=== PATIENT | male | born 1940 | race Caucasian/White ===

== ENCOUNTER 2017-01-18 15:27 | Inpatient (IN) | payer OTHER ==
[~2017-01-18] VITALS: Ht 182.9 cm; Wt 94.3 kg
--- NOTE | ~2017-01-18 | HC ---
[facility] [place] [address] CONSULTATION Name: RHONA WAN Room #: 459-P [facility] IN M.R.#: [id number] Admission: 01/18/17 Attend Phys: Willie Dangelo DO Discharge: 01/19/17 Date of : 44 Report #: [id number] THIS REPORT FOR: //name// CC: Willie Medeirosfer Venessa DATE OF SERVICE: 01/19/2017 REASON FOR CONSULTATION: Acute kidney injury. HISTORY OF PRESENT ILLNESS: This 76-year-old male has a significant history of hypertension. He has had several recent episodes of lightheadedness and dizziness. He apparently completed his lunch yesterday and was returning to work when he experienced an episode of loss of consciousness while getting into his car. He was brought to the emergency room and then subsequently admitted for further evaluation and treatment. Of note is that the patient does consume alcohol on a fairly regular basis. His alcohol level on arrival in the emergency room yesterday was 120. PAST MEDICAL HISTORY: Otherwise remarkable for hypertension, dyslipidemia, suspected sleep apnea, unable to perform sleep study; previous right shoulder rotator cuff repair, removal of basal cell carcinoma from the nose and a carotid endarterectomy in October 2016. MEDICATIONS: On admission include Benicar 40 mg daily, oxycodone 10/325 q.3-4 hours p.r.n., Xarelto 10 mg daily, Tylenol p.r.n., Dulcolax p.r.n., Benadryl p.r.n., Colace p.r.n., and simvastatin 20 mg at bedtime. PERSONAL AND SOCIAL HISTORY: The patient is . He is a reformed smoker having quit greater than 1 year ago. He consumes what is quantified as 3-4 beers on a regular daily basis. FAMILY HISTORY: Negative for renal disease. REVIEW OF SYSTEMS: Remarkable as described in the history of present illness. He denies recent fevers, chills, sweats or other constitutional complaints. He denies shortness of breath, productive cough, hemoptysis, chest pain, palpitations, nausea, vomiting, diarrhea or constipation. PHYSICAL EXAMINATION: GENERAL: Reveals a well-developed, well-nourished male, appearing his stated age, in no acute distress. VITAL SIGNS: Blood pressure 166/58, temperature 98.3, pulse 68 and respirations 20. SKIN: Warm and dry. EXTREMITIES: There is no clubbing, cyanosis, edema, or adenopathy. [address] [address] CONSULTATION Name: RHONA WAN Room #: 459-[facility] IN [facility].#: [id number] Admission: 01/18/17 Attend Phys: Willie Dangelo DO Discharge: 01/19/17 Date of : 42 Report #: [id number] HEENT: The head is normocephalic and atraumatic. The sclerae are white. The pharynx is benign. NECK: Supple. LUNGS: [place] reveal scattered rhonchi without evidence of consolidation. There is good inspiratory effort. CARDIOVASCULAR: Reveals a regular rate and rhythm without rub. ABDOMEN: Soft and nontender without palpable mass or organomegaly. NEUROLOGIC: Reveals the patient to be alert and cooperative. He provides medical history, however, his frequent corrects him, which he readily acknowledges. LABORATORY STUDIES: Available at the time of consultation include sodium 130, potassium 4.1, chloride 97, CO2 of 22, BUN 23, creatinine 1.8, glucose 97. Troponin less than 0.04. White blood cell count 7800, hemoglobin 13.0, hematocrit 37.4, and platelet count 211,000. ASSESSMENT: 1. Apparent loss of consciousness with an elevated alcohol level. It is unclear whether the patient had a significant neurologic event, hypotensive episode or was under the influence of alcohol at the time of his episode. He is undergoing further neurologic evaluation with CT and MRI as well as EEG. At this time, I would advise moderate isotonic hydration with a check of the patient's for electrolyte/chemical profile including phosphorus, magnesium and liver function test in view of his apparent significant alcohol ingestion on a chronic basis. His creatinine has improved modestly already and I would expect further improvement based upon the current bland urinalysis any active primary renal process. There is no evidence of hepatorenal syndrome or other more significant renal issue at this time. 2. Hypertension. 3. Hyponatremia. 4. Chronic alcohol abuse. PLAN: As outlined above. I have discussed these feelings and recommendation with Dr. Travis Wells, his primary physician/hospitalist. Please see orders. <ELECTRONICALLY SIGNED> By: Oscar Gutiérrez MD 01/20/17 0957 1344 1633 Oscar Gutiérrez MD /nt
--- NOTE | ~2017-01-18 | EKG ---
[address] [place] [address] ELECTROCARDIOGRAM REPORT Name: RHONA WAN Room #: 459-P ADM IN M.R.#: [id number] Admission: 01/18/17 Attend Phys: Willie Dangelo DO Discharge: Date of : 44 Report #: [id number] THIS REPORT FOR: //name// [facility] ED Test Date: 2017-01-18 Test Time: 15:48:41 Pat Name: RHONA WAN Department: Room: [facility] Gender: M Warehouse Supervisor [address] Shift: Harjinder LANTIGUA : 1940 Requested By: Sachi Moscoso Order Number: [id number] MD: Roberto Jackson Measurements Intervals [place] Rate: 54 P: 32 [place]: 317 QRS: 34 QRSD: 91 T: 50 QT: 468 QTc: 444 Interpretive Statements Sinus rhythm Prolonged [place] interval No previous ECG available for comparison Electronically Signed On 01-19-2017 8:28:15 CDT by Roberto Jackson [email or web address] <ELECTRONICALLY SIGNED> By: Roberto Jackson MD, [facility] 01/19/17 0828 1548 1548 Roberto Jackson MD, FACC /EPI
--- NOTE | ~2017-01-18 | HC ---
[facility] [place] [address] CONSULTATION Name: SAVAGERHONA Room #: 459-P [facility] IN M.R.#: [id number] Admission: 01/18/17 Attend Phys: Willie Dangelo DO Discharge: 01/19/17 Date of : 42 Report #: [id number] THIS REPORT FOR: //name// CC: Willie Medeirosfer Venessa DATE OF SERVICE: 01/19/2017 REASON FOR CONSULTATION: Syncope. HISTORY OF PRESENT ILLNESS: This is a very pleasant gentleman who had an episode of syncope. He states that he was getting out of his car getting ready to go to work, but he just felt dizzy and instantly passed out. He denied any chest pain, pressure, tightness, heaviness or irregular heartbeat or palpitations at that time. He has had a prior CVA in October of last year. He underwent left carotid endarterectomy at that time for a high-grade carotid lesion. Since that time, he has not had any recurrent symptomatology until this episode. He states he had been into casino playing poker and had "drank few beers" earlier in the day, but was driving to work. He did not have any significant orthopnea, PND, syncope, near syncope, had no recurrent symptomatology prior to the onset of this syncopal episode. He has not had any prior diagnosis of atrial arrhythmias at all. No dependent or nondependent edema is noted. No fever, chills or night sweats. PAST MEDICAL HISTORY: Significant for, 1. Hypertension. 2. CVA as stated above. 3. Dyslipidemia. 4. Basal cell skin cancers. 5. Suspicion of sleep apnea, but was unable to complete the studies. ALLERGIES: No known drug allergies. PAST SURGICAL HISTORY: 1. Carotid endarterectomy. 2. Basal cell tumors from the nose removed. 3. Appendectomy. 4. . MEDICATIONS: At home were Aldactone, Lexapro, amlodipine, Lipitor, Diovan, Lopressor, trazodone. He had been on omeprazole, oxycodone, Xarelto, acetaminophen, Dulcolax and Benadryl. SOCIAL HISTORY: The patient is a previous smoker, does consume alcohol 2-3 cans of beer a day. Does not follow up with exercise regimen or dietary restriction. [address] [address] CONSULTATION Name: RHONA WAN Room #: 459-P [facility] IN M.R.#: [id number] Admission: 01/18/17 Attend Phys: Willie Dangelo DO Discharge: 01/19/17 Date of : 44 Report #: [id number] ELECTROCARDIOGRAM: Demonstrates sinus bradycardia, first degree AV block, nonspecific ST-T wave changes. LABORATORY DATA: Demonstrates a BUN and creatinine of 32 and 1.8. Troponin is less than 0.04. H and H are 13.6 and 39.7. RADIOLOGIC: CAT scan demonstrates mild atrophy with mild vascular changes, but no evidence of mass, bleed, etc. REVIEW OF SYSTEMS: Except for symptoms previously mentioned and those commensurate with comorbid state, the 10-point review of systems is negative. PHYSICAL EXAMINATION: GENERAL: A well-developed white male, resting comfortably in no acute distress. VITAL SIGNS: Noted and reviewed in the chart. HEENT: Normocephalic, atraumatic. Pupils are equal, round, reactive to light and accommodation. Extraocular muscles are intact. Sclerae and conjunctivae are anicteric. NECK: JVD is normal. Carotid upstrokes are bilaterally symmetrical. No bruits are heard. No thyromegaly. No lymphadenopathy. LUNGS: Clear to auscultation. No wheezes, rhonchi or crackles. No CVA tenderness. CARDIAC: Demonstrates a regular rhythm. Normal first and second heart sounds. No ventricular or atrial gallops, no rubs noted. No murmurs. No lifts or heaves, PMI normal. ABDOMEN: Soft, nontender, nondistended. Normal bowel sounds. EXTREMITIES: Without cyanosis, clubbing or edema. Distal pulses are intact. DTR symmetrical. NEUROLOGIC: Cranial nerves 2-12 are grossly normal and symmetrical. PSYCHIATRIC: Alert, oriented with normal affect. SKIN: Warm and dry. IMPRESSION: 1. Syncope, etiology of which is uncertain. I doubt that few beers that he had prior to a syncopal episode were the cause at least I hope so since he was driving during this time. His alcohol level was elevated, but this may be baseline evidence of significant tolerance. I will defer that to primary care. We will get at discharge to try and capture any type of atrial arrhythmia that may be the most likely etiology in an individual at his age with negative carotids. I doubt an echocardiogram will be beneficial in the sense that if it is negative, it does not exclude small clots that are less than 5 mm in diameter. 2. Alcohol intoxification as per primary care. 3. Dyslipidemia. We discussed [place] [employer] step 1 diet and he does voice understanding. Unfortunately, I suspect that he will follow the indications. [facility] [email or web address] [address] CONSULTATION Name: RHONA WAN Room #: 459-P [facility] IN .[place].#: [id number] Admission: 01/18/17 Attend Phys: Willie Dangelo DO Discharge: 01/19/17 Date of : 44 Report #: [id number] 4. Hypertension. We will need to see his blood pressure. He is on a significant amount of medications, but if blood pressure is still in the low teens systolic, which may suggest the fact that all the medicines that he is on is necessary for his blood pressure control. <ELECTRONICALLY SIGNED> By: Olivier Marshall MD 01/22/17 1721 0651 0813 Olivier Marshall MD /nt
--- NOTE | ~2017-01-18 | EEG ---
[facility] [place] [address] ELECTROENCEPHALOGRAM Name: RHONA WAN Room #: 459-P [facility] IN M.R.#: [id number] Admission: 01/18/17 Attend Phys: Willie Dangelo DO Discharge: 01/19/17 Date of : 42 Report #: [id number] THIS REPORT FOR: //name// CC: Willie Clifford DATE OF SERVICE: 01/19/2017 This patient is being evaluated for an episode of syncope. EEG was done by placing the electrodes by standard 10-20 system of electrode placement. Both referential and sequential montages were used for recording. Background activity in this patient's EEG is about 11 Hz and 30-40 microvolts. It is a symmetrical activity. The patient went to sleep that is associated with bilaterally symmetrical sleep spindle and vertex sharp waves. Photic stimulation was unremarkable. Throughout the record, no active epileptiform activity was noticed. IMPRESSION: This patient's EEG is within normal limits. Thank you very much for this referral. By: [id number] Sabino Simpson MD /nt
[~2017-01-18 15:27] MED LIST: AMBIEN CR 6.26.25 MG PO; AMLODIPINE BESYL5 MG PO; APAP650 PO; ASPIRIN EC81 M1 PO; BENADRYL25 MG PO; BENICAR40 MG PO; BISACODYL SUPP10 MG RECTAL; COLACE100 MG PO; HYDROCODON-ACE1 EA11 PO; LEXAPRO20 MG PO; PERCOCET 10-321 EACH PO; SIMVASTATIN20 MG PO; XARELTO10 MG PO
[2017-01-18 15:49] LABS: ABSOLUTE NEUTROPHILS 5.6 thou/uL (1.4-8.2); BASOPHILS 0.7 % (0.0-2.0); EOSINOPHILS 2.8 % (0.0-3.0); HEMATOCRIT 39.7 % (42.0-52.0); HEMOGLOBIN 13.6 gm/dL (14.0-18.0); LYMPHOCYTES 21.7 % (24.0-44.0); MCH 33.5 pg (26.0-34.0); MCHC 34.3 g/dL (28.0-37.0); MCV 97.5 fL (80.0-100.0); MONOCYTES 8.3 % (1.0-8.0); PLATELET COUNT 238 thou/uL (150-400); POLYS 66.5 % (36.0-66.0); RBC 4.07 mil/uL (4.50-6.00); RDW 12.3 % (10.5-14.5); WBC 8.4 thou/uL (4.0-11.0)
[2017-01-18 15:50] LABS: MANUAL DIFF NO
[2017-01-18 15:56] LABS: POC CA IONIZED 4.8 mg/dL (4.5-5.3); POC CREATININE 1.8 mg/dL (0.6-1.3); POC HEMOGLOBIN 14.3 g/dL (14.0-18.0); POC POTASSIUM 4.3 mmol/L (3.5-5.1)
[2017-01-18] MEDS ORDERED: LIPITOR 20 MG T20 M1 PO (16:16)
[2017-01-18] MEDS ORDERED: DIOVAN320 MG PO (16:20)
[2017-01-18] MEDS ORDERED: TRAZODONE HCL100 MG PO (16:21)
[2017-01-18] MEDS ORDERED: LOPRESSOR50 MG PO (16:21)
[2017-01-18] MEDS ORDERED: ALDACTONE25 MG PO (18:09)
[2017-01-19 05:39] LABS: ABSOLUTE NEUTROPHILS 5.4 thou/uL (1.4-8.2); BASOPHILS 0.3 % (0.0-2.0); EOSINOPHILS 2.6 % (0.0-3.0); HEMATOCRIT 37.4 % (42.0-52.0); LYMPHOCYTES 20.1 % (24.0-44.0); MCH 33.1 pg (26.0-34.0); MCHC 34.8 g/dL (28.0-37.0); MCV 95.1 fL (80.0-100.0); MONOCYTES 8.1 % (1.0-8.0); PLATELET COUNT 211 thou/uL (150-400); POLYS 68.9 % (36.0-66.0); RBC 3.93 mil/uL (4.50-6.00); WBC 7.8 thou/uL (4.0-11.0)
[2017-01-19 05:50] LABS: MANUAL DIFF NO
[2017-01-19 05:56] LABS: CALCIUM 8.8 mg/dL (8.5-10.1); CREATININE 1.5 mg/dL (0.6-1.3); POTASSIUM 4.1 mmol/L (3.5-5.1)
[2017-01-19 06:01] LABS: CHOLESTEROL 139 mg/dL (<200); HDL CHOLESTEROL 57 mg/dL (>40); LDL CHOLESTEROL 40 mg/dL (<100); TC:HDL 2.4 Ratio (Not establshd); TRIGLYCERIDE 211 mg/dL (<150); VLDL 42 mg/dL (<40)
[2017-01-19 06:04] LABS: SERUM ASSESSMENT Clear
[2017-01-19 06:37] LABS: TSH 3.188 uIU/mL (0.358-3.740)
[2017-01-19 11:55] LABS: URINE BILIRUBIN NEGATIVE (Negative); URINE BLOOD TRACE (Negative); URINE COLOR YELLOW; URINE GLUCOSE-RANDOM* NEGATIVE (Negative); URINE KETONES NEGATIVE (Negative); URINE NITRITE NEGATIVE (Negative); URINE PROTEIN (DIPSTICK) 1+ (Negative); URINE UROBILINOGEN 0.2 E.U./dl (0.2-1.0)
[2017-01-19 12:19] LABS: CASTS None Seen /LPF (None Seen); CRYSTALS None Seen /LPF (None Seen); SQUAMOUS 0-3 Few /LPF (0-3); URINE RBC None Seen /HPF (0-2); URINE WBC None Seen /HPF (0-5)
[2017-01-19 12:20] LABS: BACTERIA None Seen /HPF (None Seen)
[2017-01-19 18:10] LABS: URINE CREATININE-RANDOM* 70.4 mg/dL (Not Estab.); URINE PROTEIN-RANDOM* 33.8 mg/dL (Not Estab.)
[2017-01-19 19:12] LABS: GLYCOHEMOGLOBIN (HGB A1C) 5.3 % (4.8-5.6)
== END 2017-01-19 17:03 | disposition home or self-care (01) | DRG 897 ==
LOC: ER 15:27 → EROBS 16:06 → 4W 16:06
PROVIDERS: Emergency Medicine; Internal Medicine Geriatric Medicine; Internal Medicine Nephrology; Psychiatry & Neurology Neurology
DX: F10.129 Alcohol abuse with intoxication, unspecified (principal); E87.1 Hypo-osmolality and hyponatremia; N17.9 Acute kidney failure, unspecified; E78.00 Pure hypercholesterolemia, unspecified; E78.5 Hyperlipidemia, unspecified; G47.30 Sleep apnea, unspecified; N18.9 Chronic kidney disease, unspecified; I12.9 Hypertensive chronic kidney disease with stage 1 through stage 4 chronic kidney disease, or unspecified chronic kidney disease; W18.39XA Other fall on same level, initial encounter; Y90.6 Blood alcohol level of 120-199 mg/100 ml; Y93.89 Activity, other specified; Y92.89 Other specified places as the place of occurrence of the external cause; Y99.8 Other external cause status; Z87.891 Personal history of nicotine dependence; Z90.49 Acquired absence of other specified parts of digestive tract; Z86.73 Personal history of transient ischemic attack (TIA), and cerebral infarction without residual deficits; Z28.21 Immunization not carried out because of patient refusal
CPT/HCPCS: 10045

== ENCOUNTER 2017-09-25 08:26 | Inpatient (IN) | payer OTHER ==
[2017-09-21 13:03] LABS: URINE BILIRUBIN NEGATIVE (Negative); URINE BLOOD NEGATIVE (Negative); URINE COLOR YELLOW; URINE GLUCOSE-RANDOM* NEGATIVE (Negative); URINE KETONES NEGATIVE (Negative); URINE LEUKOCYTES-REFLEX NEGATIVE (Negative); URINE PROTEIN (DIPSTICK) NEGATIVE (Negative); URINE SPECIFIC GRAVITY <= 1.005 (1.003-1.035); URINE UROBILINOGEN 0.2 E.U./dl (0.2-1.0)
[2017-09-21 13:11] LABS: HEMATOCRIT 41.5 % (42.0-52.0); HEMOGLOBIN 14.1 gm/dL (14.0-18.0); MCH 32.8 pg (26.0-34.0); MCV 96.4 fL (80.0-100.0); RBC 4.31 mil/uL (4.50-6.00); RDW 11.9 % (10.5-14.5); WBC 7.4 thou/uL (4.0-11.0)
[2017-09-21 13:26] LABS: APTT 30.2 Seconds (24.5-32.8); PROTIME 9.5 Seconds (9.3-11.4)
[2017-09-21 13:29] LABS: ALBUMIN 4.2 g/dL (3.4-5.0); CALCIUM 9.4 mg/dL (8.5-10.1); CREATININE 1.6 mg/dL (0.7-1.3); POTASSIUM 4.8 mmol/L (3.5-5.1); TOTAL BILIRUBIN 0.5 mg/dL (<0.1-1.0); TOTAL PROTEIN 8.4 g/dL (6.4-8.2)
[~2017-09-25] VITALS: Ht 180.3 cm; Wt 89.4 kg
--- NOTE | ~2017-09-25 | S ---
[facility] [place] [address] SURGICAL PATH RPT PROCEDURE Name: CHARANJIT WAN Room #: 239-P [facility] IN M.R.#: [id number] Admission: 10/03/17 Date of : 44 Discharge: 10/04/17 Report #: [id number] Path Case #: [id number] PATHOLOGY REPORT COLLECTION DATE: 10/03/2017 RECEIVED DATE: 10/04/2017 SUBMITTING PHYS: Dr. Samson Rivera OTHER PHYS: Dr Lashawn Clifford SPECIMEN(S) RECEIVED: A.Left femoral endarterectomy plaque B.Right femoral artery plaque * * * * * * * * * * * * FINAL DIAGNOSIS: A. Left femoral endarterectomy plaque: - Atheromatous plaque with extensive calcification. B. Right femoral artery plaque: - Atheromatous plaque with extensive calcification. PATHOLOGIST: Samson Briceno M.D. REPORT ELECTRONICALLY SIGNED BY: Samson Briceno M.D. DATE/TIME: 10/05/2017 09:34 * * * * * * * * * * * * GROSS PATHOLOGY: A. The specimen is received in formalin labeled "Charanjit Handwork, left femoral endarterectomy plaque". Received are multiple segments of moderately calcified pale tapia rubbery tissue measuring 5.5 x 1.2 x 0.6 cm in aggregate dimensions. The specimen is submitted representatively in cassette A1, following decalcification. B. The specimen is received in formalin labeled "Charanjit Handwork, right femoral artery plaque". Received are multiple segments of moderately calcified pale tapia rubbery tissue measuring 4.2 x 1.5 x 0.8 cm in aggregate dimensions. The specimen is submitted representatively in cassette B1, following decalcification. (CAA; 10/04/2017) CLINICAL HISTORY: PVD, claudication INITIAL CPT CODE(S): A; 48403, 51829 B; 28516, 38221 [facility] at [address] [address] SURGICAL PATH RPT PROCEDURE Name: HANDCHARANJIT MCLEOD Room #: [address] [place] [address].#: [id number] Admission: 10/03/17 Date of : 44 Discharge: 10/04/17 Report #: [id number] Path Case #: [id number] , [place] [address] [facility] at [address] [place] [address], [facility] [address] [address]. [facility] [address] [place] [address] PHONE: [phone] DIRECTOR: Yonis Connolly M.D. * * * END OF REPORT * * *
--- NOTE | ~2017-09-25 | EKG ---
[address] [address] ELECTROCARDIOGRAM REPORT Name: RHONA WAN Room #: PRE IN [facility]#: [id number] Admission: Attend Phys: Samson Rivera MD Discharge: Date of : 44 Report #: [id number] THIS REPORT FOR: //name// [facility] Test Date: 2017-09-21 Test Time: 12:55:48 Pat Name: RHONA WAN Department: Room: Gender: Sneller Hand: lewis : 1940 Requested By: Samson Rivera Order Number: [id number] : Domingo Summers Measurements Intervals [place] Rate: 50 P: 23 ID: [id number] QRS: 35 QRSD: 86 T: 47 QT: 464 QTc: 424 Interpretive Statements Sinus rhythm Prolonged [place] interval Compared to ECG 01/18/2017 15:48:41 No significant changes Electronically Signed On 09-21-2017 15:47:42 [employer] SPECIALIST by Domingo Summers [email or web address] <ELECTRONICALLY SIGNED> By: Domingo Summers MD 09/21/17 1547 1255 1255 Domingo Summers MD /HESHAM
--- NOTE | ~2017-09-25 | O ---
[facility] [place] [address] OPERATIVE REPORT Name: SAVAGERHONA Room #: 239-P [facility] IN M.R.#: [id number] Admission: 10/03/17 Attend Phys: Samson Rivera MD Discharge: 10/04/17 Date of : 44 Report #: [id number] THIS REPORT FOR: //name// CC: Lashawn Rivera DATE OF SERVICE: 10/03/2017 PREOPERATIVE DIAGNOSIS: Peripheral vascular occlusive disease, bilateral claudication. FINAL DIAGNOSIS: Peripheral vascular occlusive disease, bilateral claudication. OPERATION PERFORMED: Bilateral common femoral artery and superficial femoral artery endarterectomies with bovine pericardial patch angioplasty. ANESTHESIA: General. OPERATIVE INDICATIONS: The patient is a 77-year-old male who has presented with bilateral lower extremity claudication. He has undergone evaluation including angiography showing evidence of bilateral common femoral artery and superficial femoral artery stenoses that are high grade. He is subsequently brought to the operating room now for common femoral artery endarterectomy. OPERATIVE SUMMARY: The patient brought to the operating room and placed on the OR table in supine position. After anesthesia was induced via the general endotracheal route and monitoring lines have been positioned, the patient was prepped and draped in sterile fashion with chlorhexidine. I first made an oblique incision in the right groin, dissected down and exposed the contents of the femoral sheath, exposing the common, superficial, and profunda femoral arteries, dissected them free from surrounding tissues. A similar dissection was performed on the left side. We then gave heparin systemically 15,000 units. I then clamped the common profunda and then superficial femoral arteries on the right side. A common femoral artery arteriotomy was made and extended down into the superficial femoral artery. There was no significant plaque extending into the profunda femoral artery. The plaque was dissected from the wall, all loose fronds were debrided from the vessel wall. We closed the arteriotomy with a bovine pericardial patch utilizing 6-0 Prolene. Prior to completing the closure, the site was flushed both antegrade and retrograde, was irrigated and then deaired. Clamps were then released on the profunda femoral artery, common femoral artery and then the superficial femoral artery. Additional sutures were required to obtain hemostasis. We then packed this wound with a Ray-Heather gauze and closed the skin with metal deborah. We then clamped the common, superficial, and profunda femoral arteries on the patient's left side. Again, an arteriotomy was made and extended proximally into the common femoral artery and extended into the superficial femoral artery. The plaque was dissected from [address] [address] OPERATIVE REPORT Name: RHONA WAN Room #: 239-P [facility] IN M.R.#: [id number] Admission: 10/03/17 Attend Phys: Samson Rivera MD Discharge: 10/04/17 Date of : 44 Report #: [id number] the vessel wall. No plaque was involved in the profunda femoral artery. All loose fronds were then debrided and the arteriotomy was closed with 6-0 Prolene utilizing a bovine pericardial patch. Again, the site was flushed both antegrade and retrograde, irrigated and then deaired. Flow was then allowed down the profunda femoral artery and finally the superficial femoral artery. Protamine was then given to reverse the heparin. Doppler signals were excellent in the common, profunda and superficial femoral arteries bilaterally. After adequate hemostasis was achieved, wounds were closed in multiple layers with absorbable sutures. The procedure was completed. The patient was taken to the postanesthesia care unit in stable condition. In the PACU, the patient was noted to have palpable pedal pulses. Operative blood loss was approximately 125 mL. No complications were noted. Surgical specimens included the atherosclerotic plaque. <ELECTRONICALLY SIGNED> By: Samson Rivera MD 10/23/17 0805 1832 190 Samson Rivera MD /nt
[~2017-09-25 08:26] MED LIST changes: +ALDACTONE25 MG PO; +ASPIR 8181 MG PO; +DIOVAN320 MG PO; +IRON325 PO; +LIPITOR 20 MG T20 M1 PO; +LOPRESSOR50 MG PO; +TRAZODONE HCL100 MG PO; +VITAMIN D1000 UNI1 PO
[2017-10-03] VITALS (9 sets, daily range): BP systolic 128–144; BP diastolic 47–57
[2017-10-04] VITALS (15 sets, daily range): BP systolic 122–157; BP diastolic 49–70
[2017-10-04 04:34] LABS: HEMATOCRIT 36.6 % (42.0-52.0); HEMOGLOBIN 12.2 gm/dL (14.0-18.0); MCH 32.5 pg (26.0-34.0); MCHC 33.2 g/dL (28.0-37.0); MCV 97.8 fL (80.0-100.0); RBC 3.75 mil/uL (4.50-6.00); RDW 12.6 % (10.5-14.5); WBC 9.5 thou/uL (4.0-11.0)
[2017-10-04 04:45] LABS: CALCIUM 8.4 mg/dL (8.5-10.1); CREATININE 1.5 mg/dL (0.7-1.3); POTASSIUM 4.4 mmol/L (3.5-5.1)
[2017-10-04] MEDS ORDERED: ASPIRIN325 PO (10:01)
[2017-10-04] MEDS ORDERED: HYDROCODONE-AP1 EAC6 PO (10:03)
== END 2017-10-04 13:00 | disposition home or self-care (01) | DRG 254 ==
LOC: OR 08:26 → EDSTATUS 08:27 → PRE 08:30 → TBA 10-03 05:23 → PRE 10-03 05:23 → ICU 10-03 05:23 → PRE 10-03 14:07 → ICU 10-03 17:04
PROVIDERS: Thoracic Surgery (Cardiothoracic Vascular Surgery)
DX: I70.213 Atherosclerosis of native arteries of extremities with intermittent claudication, bilateral legs (principal); I12.9 Hypertensive chronic kidney disease with stage 1 through stage 4 chronic kidney disease, or unspecified chronic kidney disease; N18.3 Chronic kidney disease, stage 3 (moderate); G47.33 Obstructive sleep apnea (adult) (pediatric); Z96.642 Presence of left artificial hip joint; E78.5 Hyperlipidemia, unspecified; Z28.21 Immunization not carried out because of patient refusal; Z86.73 Personal history of transient ischemic attack (TIA), and cerebral infarction without residual deficits; Z90.49 Acquired absence of other specified parts of digestive tract; Z98.42 Cataract extraction status, left eye; Z98.41 Cataract extraction status, right eye
CPT/HCPCS: 10078; 50010; 50101; 50386; 50417; 50455; 51301; 51412; 52279; 56524; 56526; 56527; 56639; 57093; 62110; 62900; 70005

== ENCOUNTER → 2018-02-20 | Outpatient (CLI) | payer OTHER ==
[~2018-02-20] MED LIST changes: +ASPIRIN325 PO; +HYDROCODONE-AP1 EAC6 PO
== END ==
LOC: ULTRA 06:13
DX: M79.604 Pain in right leg (principal); M79.605 Pain in left leg

== ENCOUNTER → 2019-01-07 | Outpatient (CLI) | payer OTHER | LOC: MRI 09:22 | DX: S32.030A Wedge compression fracture of third lumbar vertebra, initial encounter for closed fracture (principal); M53.3 Sacrococcygeal disorders, not elsewhere classified; M47.26 Other spondylosis with radiculopathy, lumbar region; M48.061 Spinal stenosis, lumbar region without neurogenic claudication; W19.XXXA Unspecified fall, initial encounter; Y93.89 Activity, other specified; Y92.89 Other specified places as the place of occurrence of the external cause; Y99.8 Other external cause status ==

== ENCOUNTER → 2019-02-13 | Outpatient (CLI) | payer OTHER ==
[2019-02-13 09:47] LABS: CREATININE 2.2 mg/dL (0.7-1.3)
== END ==
LOC: MRI 09:17 → LAB 09:17
PROVIDERS: Family Medicine
DX: I67.82 Cerebral ischemia (principal); I63.9 Cerebral infarction, unspecified; G31.9 Degenerative disease of nervous system, unspecified

== ENCOUNTER → 2020-05-26 | Outpatient (CLI) | payer OTHER ==
[~2020-05-26] VITALS: Ht 182.9 cm; Wt 85.3 kg
[~2020-05-26] MED LIST changes: +ASA81BEC PO; +CLONIDINE HCL0.2 M2 PO; +NORVASC 2.5 MG2.5 M1 PO; +PLAVIX 75 MG TA75 MG PO; +SPIRONOLACTONE25 MG PO; +TOPROL XL50 MG PO
[2020-05-26 07:21] VITALS: BP 145/53
[2020-05-26 07:21] LABS: HEMATOCRIT 37.4 % (42.0-52.0); HEMOGLOBIN 12.7 gm/dL (14.0-18.0); MCH 33.1 pg (26.0-34.0); MCHC 33.9 g/dL (28.0-37.0); MCV 97.5 fL (80.0-100.0); RBC 3.83 mil/uL (4.50-6.00); RDW 12.6 % (10.5-14.5); WBC 6.8 thou/uL (4.0-11.0)
[2020-05-26 07:35] LABS: CALCIUM 8.7 mg/dL (8.5-10.1); POTASSIUM 3.9 mmol/L (3.5-5.1)
== END | disposition home or self-care (01) ==
LOC: CATH 06:52
PROVIDERS: ATTEND Nuclear Medicine Nuclear Cardiology
DX: I70.213 Atherosclerosis of native arteries of extremities with intermittent claudication, bilateral legs (principal); I70.1 Atherosclerosis of renal artery; I12.9 Hypertensive chronic kidney disease with stage 1 through stage 4 chronic kidney disease, or unspecified chronic kidney disease; N18.3 Chronic kidney disease, stage 3 (moderate); E78.5 Hyperlipidemia, unspecified; F32.9 Major depressive disorder, single episode, unspecified; D64.9 Anemia, unspecified; Z98.890 Other specified postprocedural states; Z79.899 Other long term (current) drug therapy; Z96.642 Presence of left artificial hip joint; Z86.73 Personal history of transient ischemic attack (TIA), and cerebral infarction without residual deficits; Z98.41 Cataract extraction status, right eye; Z98.42 Cataract extraction status, left eye; Z90.49 Acquired absence of other specified parts of digestive tract; Z79.82 Long term (current) use of aspirin

== ENCOUNTER → 2020-09-10 | Outpatient (CLI) | payer OTHER | LOC: SJCVCIMAG 07:58 | PROVIDERS: ATTEND Nuclear Medicine Nuclear Cardiology | DX: I44.0 Atrioventricular block, first degree (principal); I12.9 Hypertensive chronic kidney disease with stage 1 through stage 4 chronic kidney disease, or unspecified chronic kidney disease; N18.30 Chronic kidney disease, stage 3 unspecified; I73.9 Peripheral vascular disease, unspecified; Z79.899 Other long term (current) drug therapy ==

== ENCOUNTER → 2020-09-14 | Outpatient (CLI) | payer OTHER | LOC: SJCVCIMAG 07:39 | PROVIDERS: ATTEND Nuclear Medicine Nuclear Cardiology | DX: I70.202 Unspecified atherosclerosis of native arteries of extremities, left leg (principal); I77.9 Disorder of arteries and arterioles, unspecified; I12.9 Hypertensive chronic kidney disease with stage 1 through stage 4 chronic kidney disease, or unspecified chronic kidney disease; N18.30 Chronic kidney disease, stage 3 unspecified; I70.1 Atherosclerosis of renal artery; E78.00 Pure hypercholesterolemia, unspecified; Z95.828 Presence of other vascular implants and grafts; Z79.899 Other long term (current) drug therapy; Z87.891 Personal history of nicotine dependence ==

== ENCOUNTER → 2021-04-05 | Outpatient (CLI) | payer OTHER | LOC: SJCVCIMAG 07:25 | PROVIDERS: ATTEND Nuclear Medicine Nuclear Cardiology | DX: I65.23 Occlusion and stenosis of bilateral carotid arteries (principal); I70.202 Unspecified atherosclerosis of native arteries of extremities, left leg; I77.9 Disorder of arteries and arterioles, unspecified; I70.1 Atherosclerosis of renal artery; I12.9 Hypertensive chronic kidney disease with stage 1 through stage 4 chronic kidney disease, or unspecified chronic kidney disease; E78.00 Pure hypercholesterolemia, unspecified; N18.30 Chronic kidney disease, stage 3 unspecified; Z86.73 Personal history of transient ischemic attack (TIA), and cerebral infarction without residual deficits; Z87.891 Personal history of nicotine dependence; Z79.899 Other long term (current) drug therapy ==

== ENCOUNTER → 2021-11-08 | Outpatient (CLI) | payer OTHER | LOC: SJCVCIMAG 12:49 | PROVIDERS: ATTEND Nuclear Medicine Nuclear Cardiology | DX: I65.23 Occlusion and stenosis of bilateral carotid arteries (principal); I70.202 Unspecified atherosclerosis of native arteries of extremities, left leg; I70.1 Atherosclerosis of renal artery; I12.9 Hypertensive chronic kidney disease with stage 1 through stage 4 chronic kidney disease, or unspecified chronic kidney disease; N18.30 Chronic kidney disease, stage 3 unspecified; E78.00 Pure hypercholesterolemia, unspecified; G47.33 Obstructive sleep apnea (adult) (pediatric); Z79.899 Other long term (current) drug therapy; Z87.891 Personal history of nicotine dependence ==